=== PATIENT | female | born 1940 | race Caucasian/White ===

== ENCOUNTER 2016-11-02 19:31 | Emergency (ER) | payer MEDICARE ==
[~2016-11-02] VITALS: Ht 162.6 cm; Wt 109.0 kg
[~2016-11-02 19:31] MED LIST: ASPI-1073 PO; ATEN50TA PO; ATOR20TA65 PO; CLOP75TA2 PO; FURO40TA5 PO; IRON45TA10 PO; KCL 20 MEQ PO; LEVVL SQ
[2016-11-02 21:43] VITALS: BP 150/45
== END 2016-11-02 21:47 | disposition home or self-care (01) ==
LOC: ER 20:35
DX: S91.051A Open bite, right ankle, initial encounter (principal); E11.9 Type 2 diabetes mellitus without complications; I50.9 Heart failure, unspecified; Z79.82 Long term (current) use of aspirin; Z88.6 Allergy status to analgesic agent; Z79.4 Long term (current) use of insulin; Z95.1 Presence of aortocoronary bypass graft; W55.01XA Bitten by cat, initial encounter; Y93.89 Activity, other specified; Y92.018 Other place in single-family (private) house as the place of occurrence of the external cause
CPT/HCPCS: 99283

== ENCOUNTER 2017-11-11 17:50 | Inpatient (IN) | payer MEDICARE ==
[~2017-11-11] VITALS: Ht 160 cm; Wt 129.5 kg
[~2017-11-11 17:50] MED LIST changes: +CLOP75TA16 PO; -CLOP75TA2 PO
[2017-11-11 18:00] VITALS: BP 194/64
[2017-11-11] MEDS ORDERED: BISACODYL 10MG SUPP PR PRN (19:30)
[2017-11-11] MEDS ORDERED: GUAIFENESIN-DM 200MG-20MG/10ML UDC PO PRN (19:30)
[2017-11-11] MEDS ORDERED: CLONIDINE 0.1MG TABLET PO PRN (19:30)
[2017-11-11] MEDS ORDERED: ONDANSETRON HCL 4MG/2ML VIAL IV PRN (19:30)
[2017-11-11] MEDS ORDERED: ACETAMINOPHEN 650MG SUPP PR PRN (19:30)
[2017-11-11] MEDS ORDERED: IPRATROPIUM/ALBUTEROL 0.5-3(2.5)MG/3ML NEB HHN PRN (19:30)
[2017-11-11] MEDS ORDERED: ACETAMINOPHEN 325MG TABLET PO PRN (19:30)
[2017-11-11] MEDS ORDERED: NYSTATIN POWDER 15GM TOP SCH ×2 (19:30→22:00)
[2017-11-11] MEDS ORDERED: DEXTROSE 50% WATER 50ML SYRINGE IV PRN (19:45)
[2017-11-11 20:00] VITALS: BP 147/40
[2017-11-11] MEDS: BLOOD SUGAR DIAGNOSTIC STRIP TEST SCH (21:00)
[2017-11-11] MEDS ORDERED: PANTOPRAZOLE 40MG DR TABLET PO SCH (21:00)
[2017-11-11] MEDS: IPRATROPIUM/ALBUTEROL 0.5-3(2.5)MG/3ML NEB HHN SCH (21:19)
[2017-11-11] MEDS: SUCRALFATE 1 G/10 ML UDC PO SCH (22:05)
[2017-11-11] MEDS: ATORVASTATIN CALCIUM 20MG TABLET PO SCH (22:06)
[2017-11-11] MEDS: METOPROLOL TARTRATE 25MG TABLET PO SCH (22:06)
[2017-11-11] MEDS: AMLODIPINE 2.5MG TABLET PO SCH (22:07)
[2017-11-11] MEDS: INSULIN LISPRO 100 UNITS/ML SUBCUT SCH (22:39)
[2017-11-12] VITALS: BP 135/59
[2017-11-12] MEDS: IPRATROPIUM/ALBUTEROL 0.5-3(2.5)MG/3ML NEB HHN SCH ×6 (00:33→20:56)
[2017-11-12] MEDS ORDERED: PANTOPRAZOLE 40MG DR TABLET PO SCH (01:15)
[2017-11-12] MEDS: SUCRALFATE 1 G/10 ML UDC PO SCH ×4 (05:43→21:56)
[2017-11-12] MEDS: BLOOD SUGAR DIAGNOSTIC STRIP TEST SCH ×4 (05:43→21:57)
[2017-11-12] MEDS: PANTOPRAZOLE 40MG DR TABLET PO SCH ×2 (06:14→17:33)
[2017-11-12 08:00] VITALS: BP 135/59
[2017-11-12 08:37] LABS: BASOPHILS % 0.6 % (0.0-2.0); HEMATOCRIT. 27.8 % (36.0-48.0); HEMOGLOBIN. 9.3 g/dL (12.0-16.0); LYMPHOCYTES % 8.1 % (20.0-50.0); MEAN CORPUSCULAR HEMOGLOBIN 30.5 pg (28.0-32.0); MEAN CORPUSCULAR VOLUME 91.2 fL (81.0-99.0); MEAN PLATELET VOLUME 9.1 fl (7.4-10.4); NEUTROPHILS % 73.3 % (40.0-76.0); PLATELET 143 x1000/uL (130-400); RED BLOOD CELL COUNT 3.05 mill/uL (4.2-5.4); RED CELL DISTRIBUTION WIDTH 18.5 % (11.6-14.6)
[2017-11-12] MEDS: INSULIN LISPRO 100 UNITS/ML SUBCUT SCH ×4 (09:00→21:00)
[2017-11-12] MEDS: FLUCONAZOLE 200MG TABLET PO SCH (09:48)
[2017-11-12] MEDS: ASPIRIN 81MG EC TABLET PO SCH (09:49)
[2017-11-12] MEDS: DOCUSATE SODIUM 250MG CAPSULE PO SCH (09:49)
[2017-11-12] MEDS: AMLODIPINE 2.5MG TABLET PO SCH ×2 (09:49→22:59)
[2017-11-12] MEDS: NYSTATIN POWDER 15GM TOP SCH ×2 (09:50→22:04)
[2017-11-12] MEDS: METOPROLOL TARTRATE 25MG TABLET PO SCH ×2 (09:50→21:57)
[2017-11-12] MEDS: LEVOFLOXACIN 500MG TABLET PO SCH (10:16)
[2017-11-12 10:44] LABS: PHOSPHORUS 2.7 mg/dL (2.5-4.9)
[2017-11-12] MEDS ORDERED: FUROSEMIDE 40MG/4ML VIAL IVP NR (11:30)
[2017-11-12 20:00] VITALS: BP 150/75
[2017-11-12] MEDS: ATORVASTATIN CALCIUM 20MG TABLET PO SCH (21:57)
[2017-11-13] MEDS: IPRATROPIUM/ALBUTEROL 0.5-3(2.5)MG/3ML NEB HHN SCH ×2 (00:45→04:45)
[2017-11-13] MEDS: SUCRALFATE 1 G/10 ML UDC PO SCH ×4 (05:58→22:44)
[2017-11-13] MEDS: BLOOD SUGAR DIAGNOSTIC STRIP TEST SCH ×4 (05:58→21:00)
[2017-11-13] MEDS: PANTOPRAZOLE 40MG DR TABLET PO SCH ×2 (05:59→16:55)
[2017-11-13] MEDS: INSULIN LISPRO 100 UNITS/ML SUBCUT SCH ×4 (06:36→21:00)
[2017-11-13 06:53] LABS: CLARITY URINE CLEAR (CLEAR); COLOR URINE YELLOW (YELLOW); KETONES URINE NEGATIVE (NEGATIVE); LEUKOCYTE ESTERASE URINE NEGATIVE (NEGATIVE); NITRITE URINE NEGATIVE (NEGATIVE); OCCULT BLOOD URINE TRACE (NEGATIVE); PROTEIN URINE 2+ (NEGATIVE); SPECIFIC GRAVITY URINE 1.012 (1.005-1.030); UROBILINOGEN URINE 0.2 E.U./dL (0.2-1.0)
[2017-11-13 07:33] VITALS: BP 165/90
[2017-11-13 07:34] LABS: BASOPHILS % 0.7 % (0.0-2.0); EOSINOPHILS % 7.9 % (0.0-5.0); HEMATOCRIT. 29.8 % (36.0-48.0); HEMOGLOBIN. 9.7 g/dL (12.0-16.0); LYMPHOCYTES % 8.8 % (20.0-50.0); MEAN CORPUSCULAR HEMOGLOBIN 29.8 pg (28.0-32.0); MEAN CORPUSCULAR VOLUME 91.6 fL (81.0-99.0); MONOCYTES % 8.1 % (2.0-8.0); NEUTROPHILS % 74.5 % (40.0-76.0); PLATELET 157 x1000/uL (130-400); RED BLOOD CELL COUNT 3.26 mill/uL (4.2-5.4); RED CELL DISTRIBUTION WIDTH 18.8 % (11.6-14.6)
[2017-11-13] MEDS: DOCUSATE SODIUM 250MG CAPSULE PO SCH (08:13)
[2017-11-13] MEDS: FLUCONAZOLE 200MG TABLET PO SCH (08:13)
[2017-11-13] MEDS: AMLODIPINE 2.5MG TABLET PO SCH ×2 (08:14→23:05)
[2017-11-13] MEDS: ASPIRIN 81MG EC TABLET PO SCH (08:14)
[2017-11-13] MEDS: METOPROLOL TARTRATE 25MG TABLET PO SCH ×2 (08:14→22:44)
[2017-11-13] MEDS: NYSTATIN POWDER 15GM TOP SCH ×2 (08:17→22:45)
[2017-11-13] MEDS ORDERED: CLONIDINE 0.1MG TABLET PO PRN (09:30)
[2017-11-13 11:13] LABS: PHOSPHORUS 2.9 mg/dL (2.5-4.9)
[2017-11-13] MEDS: LEVOFLOXACIN 500MG TABLET PO SCH (11:52)
[2017-11-13] MEDS: BISACODYL 5MG TABLET PO PRN (11:54)
[2017-11-13] MEDS ORDERED: FUROSEMIDE 40MG/4ML VIAL IVP NR (16:30)
[2017-11-13] MEDS: LACTULOSE 20G/30ML UDC PO PRN (16:55)
[2017-11-13] MEDS: DOCUSATE SODIUM 100MG CAPSULE PO SCH ×2 (16:55→20:00)
[2017-11-13 20:00] VITALS: BP 174/104
[2017-11-13] MEDS: ATORVASTATIN CALCIUM 20MG TABLET PO SCH (22:44)
[2017-11-14] MEDS: BLOOD SUGAR DIAGNOSTIC STRIP TEST SCH ×4 (06:54→21:00)
[2017-11-14] MEDS: INSULIN LISPRO 100 UNITS/ML SUBCUT SCH ×4 (06:54→22:32)
[2017-11-14] MEDS: PANTOPRAZOLE 40MG DR TABLET PO SCH ×2 (06:57→18:28)
[2017-11-14] MEDS: SUCRALFATE 1 G/10 ML UDC PO SCH ×4 (06:57→22:27)
[2017-11-14 07:09] LABS: BASOPHILS % 0.8 % (0.0-2.0); EOSINOPHILS % 11.4 % (0.0-5.0); HEMATOCRIT. 27.2 % (36.0-48.0); HEMOGLOBIN. 9.1 g/dL (12.0-16.0); LYMPHOCYTES % 9.2 % (20.0-50.0); MEAN CORPUSCULAR HEMOGLOBIN 30.4 pg (28.0-32.0); MEAN CORPUSCULAR VOLUME 91.1 fL (81.0-99.0); MEAN PLATELET VOLUME 8.8 fl (7.4-10.4); MONOCYTES % 7.6 % (2.0-8.0); PLATELET 129 x1000/uL (130-400); RED BLOOD CELL COUNT 2.99 mill/uL (4.2-5.4); RED CELL DISTRIBUTION WIDTH 18.9 % (11.6-14.6)
[2017-11-14 08:00] VITALS: BP 157/44
[2017-11-14 08:03] LABS: PHOSPHORUS 3.7 mg/dL (2.5-4.9)
[2017-11-14] MEDS ORDERED: FUROSEMIDE 40MG/4ML VIAL IVP SCH (10:00)
[2017-11-14] MEDS: ASPIRIN 81MG EC TABLET PO SCH (10:21)
[2017-11-14] MEDS: DOCUSATE SODIUM 100MG CAPSULE PO SCH ×2 (10:21→18:28)
[2017-11-14] MEDS: FLUCONAZOLE 200MG TABLET PO SCH (10:21)
[2017-11-14] MEDS: LEVOFLOXACIN 500MG TABLET PO SCH (10:22)
[2017-11-14] MEDS: AMLODIPINE 2.5MG TABLET PO SCH ×2 (10:22→21:00)
[2017-11-14] MEDS: METOPROLOL TARTRATE 25MG TABLET PO SCH ×2 (10:23→21:00)
[2017-11-14] MEDS: NYSTATIN POWDER 15GM TOP SCH ×2 (10:38→22:27)
[2017-11-14 20:00] VITALS: BP 133/55
[2017-11-14] MEDS: ATORVASTATIN CALCIUM 20MG TABLET PO SCH (22:27)
[2017-11-14] MEDS: FUROSEMIDE 40MG/4ML VIAL IVP SCH (22:27)
[2017-11-15] MEDS: SUCRALFATE 1 G/10 ML UDC PO SCH ×4 (06:03→21:21)
[2017-11-15] MEDS: BLOOD SUGAR DIAGNOSTIC STRIP TEST SCH ×4 (06:03→21:05)
[2017-11-15] MEDS: INSULIN LISPRO 100 UNITS/ML SUBCUT SCH ×4 (06:03→21:21)
[2017-11-15] MEDS: PANTOPRAZOLE 40MG DR TABLET PO SCH ×2 (06:03→17:21)
[2017-11-15 06:49] LABS: BASOPHILS % 0.5 % (0.0-2.0); EOSINOPHILS % 9.6 % (0.0-5.0); HEMATOCRIT. 25.5 % (36.0-48.0); HEMOGLOBIN. 8.8 g/dL (12.0-16.0); LYMPHOCYTES % 10.9 % (20.0-50.0); MEAN CORPUSCULAR HEMOGLOBIN 31.5 pg (28.0-32.0); MEAN CORPUSCULAR VOLUME 91.5 fL (81.0-99.0); MONOCYTES % 7.8 % (2.0-8.0); NEUTROPHILS % 71.2 % (40.0-76.0); PLATELET 141 x1000/uL (130-400); RED BLOOD CELL COUNT 2.78 mill/uL (4.2-5.4); RED CELL DISTRIBUTION WIDTH 19.6 % (11.6-14.6)
[2017-11-15 08:00] VITALS: BP 156/53
[2017-11-15] MEDS: ASPIRIN 81MG EC TABLET PO SCH (09:16)
[2017-11-15] MEDS: AMLODIPINE 2.5MG TABLET PO SCH ×2 (09:17→21:22)
[2017-11-15] MEDS: METOPROLOL TARTRATE 25MG TABLET PO SCH ×2 (09:18→21:22)
[2017-11-15] MEDS: DOCUSATE SODIUM 100MG CAPSULE PO SCH ×2 (09:18→17:21)
[2017-11-15] MEDS: FUROSEMIDE 40MG/4ML VIAL IVP SCH ×2 (09:18→21:22)
[2017-11-15] MEDS: NYSTATIN POWDER 15GM TOP SCH ×2 (09:19→21:24)
[2017-11-15 13:57] LABS: PHOSPHORUS 3.3 mg/dL (2.5-4.9)
[2017-11-15 20:00] VITALS: BP 154/42
[2017-11-15] MEDS: ATORVASTATIN CALCIUM 20MG TABLET PO SCH (21:22)
[2017-11-15] MEDS: LACTULOSE 20G/30ML UDC PO PRN (21:23)
[2017-11-16] MEDS: SUCRALFATE 1 G/10 ML UDC PO SCH ×4 (06:11→21:49)
[2017-11-16] MEDS: PANTOPRAZOLE 40MG DR TABLET PO SCH ×2 (06:11→18:55)
[2017-11-16] MEDS: BLOOD SUGAR DIAGNOSTIC STRIP TEST SCH ×4 (06:12→21:37)
[2017-11-16] MEDS: INSULIN LISPRO 100 UNITS/ML SUBCUT SCH ×4 (06:33→21:52)
[2017-11-16 08:00] VITALS: BP 172/56
[2017-11-16] MEDS: DOCUSATE SODIUM 100MG CAPSULE PO SCH ×2 (09:35→18:55)
[2017-11-16] MEDS: FUROSEMIDE 40MG/4ML VIAL IVP SCH ×2 (09:35→21:35)
[2017-11-16] MEDS: ASPIRIN 81MG EC TABLET PO SCH (09:36)
[2017-11-16] MEDS: AMLODIPINE 2.5MG TABLET PO SCH ×3 (10:00→10:03)
[2017-11-16] MEDS: METOPROLOL TARTRATE 25MG TABLET PO SCH ×2 (10:30→21:00)
[2017-11-16] MEDS ORDERED: CLOPIDOGREL 75MG TABLET PO SCH (14:30)
[2017-11-16 20:00] VITALS: BP 195/57
[2017-11-16] MEDS: AMLODIPINE 5MG TABLET PO SCH (21:35)
[2017-11-16] MEDS: ATORVASTATIN CALCIUM 20MG TABLET PO SCH (21:35)
[2017-11-17] MEDS: SUCRALFATE 1 G/10 ML UDC PO SCH ×4 (06:13→21:46)
[2017-11-17] MEDS: PANTOPRAZOLE 40MG DR TABLET PO SCH ×2 (06:13→18:03)
[2017-11-17] MEDS: BLOOD SUGAR DIAGNOSTIC STRIP TEST SCH ×4 (06:18→21:47)
[2017-11-17] MEDS: BISACODYL 5MG TABLET PO PRN (06:23)
[2017-11-17 08:00] VITALS: BP 148/56
[2017-11-17 08:59] LABS: BASOPHILS % 0.9 % (0.0-2.0); EOSINOPHILS % 10.3 % (0.0-5.0); HEMOGLOBIN. 9.8 g/dL (12.0-16.0); LYMPHOCYTES % 10.4 % (20.0-50.0); MEAN CORPUSCULAR HEMOGLOBIN 30.7 pg (28.0-32.0); MEAN CORPUSCULAR VOLUME 90.8 fL (81.0-99.0); MEAN PLATELET VOLUME 8.4 fl (7.4-10.4); MONOCYTES % 8.6 % (2.0-8.0); NEUTROPHILS % 69.8 % (40.0-76.0); PLATELET 140 x1000/uL (130-400); RED CELL DISTRIBUTION WIDTH 19.4 % (11.6-14.6)
[2017-11-17] MEDS: FUROSEMIDE 40MG/4ML VIAL IVP SCH ×2 (08:59→21:46)
[2017-11-17] MEDS: INSULIN LISPRO 100 UNITS/ML SUBCUT SCH ×4 (09:00→21:58)
[2017-11-17] MEDS: AMLODIPINE 5MG TABLET PO SCH ×2 (09:00→21:47)
[2017-11-17] MEDS: METOPROLOL TARTRATE 25MG TABLET PO SCH ×2 (09:00→21:47)
[2017-11-17] MEDS: ASPIRIN 81MG EC TABLET PO SCH (09:01)
[2017-11-17] MEDS: CLOPIDOGREL 75MG TABLET PO SCH (09:01)
[2017-11-17] MEDS: DOCUSATE SODIUM 100MG CAPSULE PO SCH ×2 (09:01→18:03)
[2017-11-17 10:16] LABS: PHOSPHORUS 2.7 mg/dL (2.5-4.9)
[2017-11-17] MEDS ORDERED: POTASSIUM CHLORIDE 20MEQ TABLET SR PO NR (11:00)
[2017-11-17] MEDS ORDERED: CLONIDINE 0.1MG TABLET PO PRN (16:00)
[2017-11-17] MEDS ORDERED: CLONIDINE 0.2MG TABLET PO PRN (16:00)
[2017-11-17 20:00] VITALS: BP 110/71
[2017-11-17] MEDS: LACTULOSE 20G/30ML UDC PO PRN (21:46)
[2017-11-17] MEDS: ATORVASTATIN CALCIUM 20MG TABLET PO SCH (21:46)
[2017-11-18] MEDS: SUCRALFATE 1 G/10 ML UDC PO SCH ×4 (05:56→21:42)
[2017-11-18] MEDS: PANTOPRAZOLE 40MG DR TABLET PO SCH ×2 (05:56→16:20)
[2017-11-18] MEDS: BLOOD SUGAR DIAGNOSTIC STRIP TEST SCH ×4 (06:09→21:43)
[2017-11-18 08:00] VITALS: BP 188/78
[2017-11-18] MEDS: DOCUSATE SODIUM 100MG CAPSULE PO SCH ×2 (08:29→16:20)
[2017-11-18] MEDS: FUROSEMIDE 40MG/4ML VIAL IVP SCH ×2 (08:29→21:42)
[2017-11-18] MEDS: ASPIRIN 81MG EC TABLET PO SCH (08:29)
[2017-11-18] MEDS: CLOPIDOGREL 75MG TABLET PO SCH (08:29)
[2017-11-18] MEDS: AMLODIPINE 5MG TABLET PO SCH (08:29)
[2017-11-18] MEDS: METOPROLOL TARTRATE 25MG TABLET PO SCH ×2 (08:30→21:45)
[2017-11-18] MEDS: INSULIN LISPRO 100 UNITS/ML SUBCUT SCH ×4 (08:31→21:44)
[2017-11-18 20:00] VITALS: BP 186/54
[2017-11-18] MEDS ORDERED: LOSARTAN POTASSIUM 25 MG TABLET PO SCH (21:00)
[2017-11-18] MEDS: ATORVASTATIN CALCIUM 20MG TABLET PO SCH (21:42)
[2017-11-18] MEDS: NYSTATIN POWDER 15GM TOP SCH (21:45)
[2017-11-19] VITALS: BP 122/58
[2017-11-19] MEDS: SUCRALFATE 1 G/10 ML UDC PO SCH ×4 (06:31→22:10)
[2017-11-19] MEDS: PANTOPRAZOLE 40MG DR TABLET PO SCH ×2 (06:31→18:31)
[2017-11-19] MEDS: BLOOD SUGAR DIAGNOSTIC STRIP TEST SCH ×4 (06:31→21:00)
[2017-11-19 06:38] LABS: BASOPHILS % 0.9 % (0.0-2.0); EOSINOPHILS % 7.5 % (0.0-5.0); HEMATOCRIT. 26.7 % (36.0-48.0); HEMOGLOBIN. 8.9 g/dL (12.0-16.0); LYMPHOCYTES % 11.9 % (20.0-50.0); MEAN CORPUSCULAR HEMOGLOBIN 30.5 pg (28.0-32.0); MEAN CORPUSCULAR VOLUME 91.2 fL (81.0-99.0); MEAN PLATELET VOLUME 8.6 fl (7.4-10.4); MONOCYTES % 7.7 % (2.0-8.0); PLATELET 142 x1000/uL (130-400); RED BLOOD CELL COUNT 2.92 mill/uL (4.2-5.4); RED CELL DISTRIBUTION WIDTH 19.3 % (11.6-14.6)
[2017-11-19 08:00] VITALS: BP 140/74
[2017-11-19] MEDS: INSULIN LISPRO 100 UNITS/ML SUBCUT SCH ×4 (08:04→22:11)
[2017-11-19 08:27] LABS: PHOSPHORUS 3.2 mg/dL (2.5-4.9)
[2017-11-19] MEDS: NYSTATIN POWDER 15GM TOP SCH ×2 (09:31→22:11)
[2017-11-19] MEDS: FUROSEMIDE 40MG/4ML VIAL IVP SCH ×2 (09:31→22:10)
[2017-11-19] MEDS: DOCUSATE SODIUM 100MG CAPSULE PO SCH ×2 (09:32→18:31)
[2017-11-19] MEDS: LOSARTAN POTASSIUM 25 MG TABLET PO SCH ×2 (09:33→21:00)
[2017-11-19] MEDS: ASPIRIN 81MG EC TABLET PO SCH (09:34)
[2017-11-19] MEDS: CLOPIDOGREL 75MG TABLET PO SCH (09:34)
[2017-11-19] MEDS: NIFEDIPINE XL 60MG TAB PO SCH ×2 (09:35→21:00)
[2017-11-19] MEDS: METOPROLOL TARTRATE 25MG TABLET PO SCH ×2 (09:35→21:00)
[2017-11-19] MEDS: POTASSIUM CHLORIDE 20MEQ TABLET SR PO SCH (11:05)
[2017-11-19] MEDS: IPRATROPIUM/ALBUTEROL 0.5-3(2.5)MG/3ML NEB HHN PRN ×2 (12:15→19:15)
[2017-11-19 20:00] VITALS: BP 117/35
[2017-11-19] MEDS: ATORVASTATIN CALCIUM 20MG TABLET PO SCH (22:10)
[2017-11-20] MEDS: BLOOD SUGAR DIAGNOSTIC STRIP TEST SCH ×4 (06:41→21:00)
[2017-11-20] MEDS: PANTOPRAZOLE 40MG DR TABLET PO SCH ×2 (06:42→17:04)
[2017-11-20] MEDS: SUCRALFATE 1 G/10 ML UDC PO SCH ×4 (06:53→22:08)
[2017-11-20 07:07] LABS: HEMATOCRIT 25.6 % (36.0-48.0); HEMOGLOBIN 8.6 g/dL (12.0-16.0); MEAN CORPUSCULAR HEMOGLOBIN 30.7 pg (28.0-32.0); MEAN CORPUSCULAR VOLUME 91.5 fL (81.0-99.0); PLATELET 135 x1000/uL (130-400); RED BLOOD CELL COUNT 2.79 mill/uL (4.2-5.4); RED CELL DISTRIBUTION WIDTH 19.8 % (11.6-14.6)
[2017-11-20 08:15] VITALS: BP 129/45
[2017-11-20] MEDS: LOSARTAN POTASSIUM 25 MG TABLET PO SCH ×2 (09:00→22:08)
[2017-11-20] MEDS: INSULIN LISPRO 100 UNITS/ML SUBCUT SCH ×4 (09:00→22:06)
[2017-11-20] MEDS: DOCUSATE SODIUM 100MG CAPSULE PO SCH ×2 (09:58→17:04)
[2017-11-20] MEDS: ASPIRIN 81MG EC TABLET PO SCH (09:58)
[2017-11-20] MEDS: FUROSEMIDE 40MG/4ML VIAL IVP SCH ×2 (09:58→22:06)
[2017-11-20] MEDS: POTASSIUM CHLORIDE 20MEQ TABLET SR PO SCH (09:59)
[2017-11-20] MEDS: CLOPIDOGREL 75MG TABLET PO SCH (10:00)
[2017-11-20] MEDS: NIFEDIPINE XL 60MG TAB PO SCH (10:00)
[2017-11-20] MEDS: METOPROLOL TARTRATE 25MG TABLET PO SCH ×2 (10:00→22:07)
[2017-11-20] MEDS: NYSTATIN POWDER 15GM TOP SCH ×2 (10:02→22:21)
[2017-11-20] MEDS ORDERED: POTASSIUM CHLORIDE 20MEQ/PACKET PO NR (11:15)
[2017-11-20] MEDS: SPIRONOLACTONE 25MG TABLET PO SCH (11:54)
[2017-11-20 20:00] VITALS: BP 160/65
[2017-11-20] MEDS: ATORVASTATIN CALCIUM 20MG TABLET PO SCH (22:08)
[2017-11-21] MEDS: IPRATROPIUM/ALBUTEROL 0.5-3(2.5)MG/3ML NEB HHN PRN ×2 (01:38→23:14)
[2017-11-21] MEDS: PANTOPRAZOLE 40MG DR TABLET PO SCH ×2 (06:24→17:02)
[2017-11-21] MEDS: SUCRALFATE 1 G/10 ML UDC PO SCH ×4 (06:24→20:57)
[2017-11-21] MEDS: BLOOD SUGAR DIAGNOSTIC STRIP TEST SCH (06:25)
[2017-11-21] MEDS: INSULIN LISPRO 100 UNITS/ML SUBCUT SCH (06:59)
[2017-11-21 08:00] VITALS: BP 163/82
[2017-11-21] MEDS: POTASSIUM CHLORIDE 20MEQ TABLET SR PO SCH (09:11)
[2017-11-21] MEDS: FUROSEMIDE 40MG/4ML VIAL IVP SCH ×2 (09:11→20:57)
[2017-11-21] MEDS: ASPIRIN 81MG EC TABLET PO SCH (09:11)
[2017-11-21] MEDS: CLOPIDOGREL 75MG TABLET PO SCH (09:11)
[2017-11-21] MEDS: DOCUSATE SODIUM 100MG CAPSULE PO SCH ×2 (09:11→17:02)
[2017-11-21] MEDS: NIFEDIPINE XL 60MG TAB PO SCH (09:12)
[2017-11-21] MEDS: LOSARTAN POTASSIUM 25 MG TABLET PO SCH ×2 (09:12→20:56)
[2017-11-21] MEDS: NYSTATIN POWDER 15GM TOP SCH ×2 (09:13→21:01)
[2017-11-21] MEDS: METOPROLOL TARTRATE 25MG TABLET PO SCH ×2 (09:13→20:56)
[2017-11-21] MEDS: SPIRONOLACTONE 25MG TABLET PO SCH ×2 (09:13→17:05)
[2017-11-21 10:27] LABS: BASOPHILS % 0.6 % (0.0-2.0); HEMATOCRIT. 27.6 % (36.0-48.0); LYMPHOCYTES % 7.5 % (20.0-50.0); MEAN CORPUSCULAR HEMOGLOBIN 30.1 pg (28.0-32.0); MEAN CORPUSCULAR VOLUME 92.1 fL (81.0-99.0); MEAN PLATELET VOLUME 8.8 fl (7.4-10.4); MONOCYTES % 6.6 % (2.0-8.0); NEUTROPHILS % 80.3 % (40.0-76.0); PLATELET 142 x1000/uL (130-400); RED BLOOD CELL COUNT 2.99 mill/uL (4.2-5.4); RED CELL DISTRIBUTION WIDTH 20.1 % (11.6-14.6)
[2017-11-21 10:54] LABS: CHLORIDE 100 mEq/L (98-107)
[2017-11-21 11:09] LABS: PHOSPHORUS 2.1 mg/dL (2.5-4.9)
[2017-11-21] MEDS: POTASSIUM-SODIUM PHOSPHATE POWDER PACKET PO SCH ×2 (11:55→17:02)
[2017-11-21] MEDS: BISACODYL 5MG TABLET PO PRN (17:57)
[2017-11-21 20:00] VITALS: BP 173/86
[2017-11-21] MEDS: ATORVASTATIN CALCIUM 20MG TABLET PO SCH (20:56)
[2017-11-21 23:11] VITALS: BP 113/42
[2017-11-22] MEDS: SUCRALFATE 1 G/10 ML UDC PO SCH ×4 (06:00→21:38)
[2017-11-22] MEDS: PANTOPRAZOLE 40MG DR TABLET PO SCH ×2 (06:01→17:10)
[2017-11-22 07:05] LABS: HEMATOCRIT 26.5 % (36.0-48.0); HEMOGLOBIN 8.9 g/dL (12.0-16.0); MEAN CORPUSCULAR HEMOGLOBIN 31.2 pg (28.0-32.0); PLATELET 127 x1000/uL (130-400); RED BLOOD CELL COUNT 2.85 mill/uL (4.2-5.4); RED CELL DISTRIBUTION WIDTH 20.4 % (11.6-14.6)
[2017-11-22 08:00] VITALS: BP 164/86
[2017-11-22 08:06] LABS: PHOSPHORUS 3.1 mg/dL (2.5-4.9)
[2017-11-22] MEDS: DOCUSATE SODIUM 100MG CAPSULE PO SCH ×2 (08:25→17:00)
[2017-11-22] MEDS: ASPIRIN 81MG EC TABLET PO SCH (08:25)
[2017-11-22] MEDS: CLOPIDOGREL 75MG TABLET PO SCH (08:26)
[2017-11-22] MEDS: SPIRONOLACTONE 25MG TABLET PO SCH ×2 (08:26→17:10)
[2017-11-22] MEDS: LOSARTAN POTASSIUM 25 MG TABLET PO SCH (08:26)
[2017-11-22] MEDS: POTASSIUM-SODIUM PHOSPHATE POWDER PACKET PO SCH ×2 (08:26→17:09)
[2017-11-22] MEDS: FUROSEMIDE 40MG/4ML VIAL IVP SCH ×2 (08:26→21:37)
[2017-11-22] MEDS: METOPROLOL TARTRATE 25MG TABLET PO SCH ×2 (08:27→21:37)
[2017-11-22] MEDS: NIFEDIPINE XL 60MG TAB PO SCH ×2 (08:27→21:37)
[2017-11-22] MEDS: NYSTATIN POWDER 15GM TOP SCH (08:45)
[2017-11-22] MEDS: IPRATROPIUM/ALBUTEROL 0.5-3(2.5)MG/3ML NEB HHN PRN (14:53)
[2017-11-22 20:00] VITALS: BP 141/101
[2017-11-22] MEDS: LOSARTAN POTASSIUM 50 MG TABLET PO SCH (21:37)
[2017-11-22] MEDS: ATORVASTATIN CALCIUM 20MG TABLET PO SCH (21:37)
[2017-11-22 22:46] VITALS: BP 112/49
[2017-11-23] MEDS: PANTOPRAZOLE 40MG DR TABLET PO SCH (06:21)
[2017-11-23] MEDS: NYSTATIN POWDER 15GM TOP SCH ×2 (06:21→08:42)
[2017-11-23] MEDS: SUCRALFATE 1 G/10 ML UDC PO SCH ×2 (06:21→11:14)
[2017-11-23 07:23] LABS: BASOPHILS % 0.8 % (0.0-2.0); EOSINOPHILS % 6.2 % (0.0-5.0); HEMATOCRIT. 27.5 % (36.0-48.0); HEMOGLOBIN. 9.3 g/dL (12.0-16.0); LYMPHOCYTES % 12.5 % (20.0-50.0); MEAN CORPUSCULAR HEMOGLOBIN 31.1 pg (28.0-32.0); MEAN CORPUSCULAR VOLUME 92.4 fL (81.0-99.0); MONOCYTES % 6.8 % (2.0-8.0); NEUTROPHILS % 73.7 % (40.0-76.0); RED BLOOD CELL COUNT 2.97 mill/uL (4.2-5.4); RED CELL DISTRIBUTION WIDTH 20.9 % (11.6-14.6)
[2017-11-23 07:31] VITALS: BP 106/39
[2017-11-23 07:44] LABS: PHOSPHORUS 3.8 mg/dL (2.5-4.9)
[2017-11-23] MEDS: FUROSEMIDE 40MG/4ML VIAL IVP SCH (08:41)
[2017-11-23] MEDS: CLOPIDOGREL 75MG TABLET PO SCH (08:41)
[2017-11-23] MEDS: DOCUSATE SODIUM 100MG CAPSULE PO SCH (08:42)
[2017-11-23] MEDS: ASPIRIN 81MG EC TABLET PO SCH (08:42)
[2017-11-23 08:50] VITALS: BP 167/77
[2017-11-23] MEDS: SPIRONOLACTONE 25MG TABLET PO SCH (08:55)
[2017-11-23] MEDS: LOSARTAN POTASSIUM 50 MG TABLET PO SCH (08:55)
[2017-11-23] MEDS: NIFEDIPINE XL 60MG TAB PO SCH (08:56)
[2017-11-23] MEDS: METOPROLOL TARTRATE 25MG TABLET PO SCH (08:56)
[2017-11-23 12:06] LABS: PLATELET 143 x1000/uL (130-400)
[2017-11-23 14:00] VITALS: BP 101/48
[2017-11-23] MEDS ORDERED: HYDRALAZINE HCL 50MG TABLET PO SCH (14:00)
[2017-11-23 14:06] VITALS: BP 101/48
== END 2017-11-23 15:14 | disposition home health service (06) | DRG 91 ==
PROVIDERS: ADMIT Psychiatry & Neurology Neurology; ATTEND Internal Medicine
DX: G72.81 Critical illness myopathy (principal); I50.33 Acute on chronic diastolic (congestive) heart failure; K29.71 Gastritis, unspecified, with bleeding; I21.4 Non-ST elevation (NSTEMI) myocardial infarction; N17.0 Acute kidney failure with tubular necrosis; I13.0 Hypertensive heart and chronic kidney disease with heart failure and stage 1 through stage 4 chronic kidney disease, or unspecified chronic kidney disease; E87.2 Acidosis; F33.1 Major depressive disorder, recurrent, moderate; G62.81 Critical illness polyneuropathy; R57.9 Shock, unspecified; Z68.43 Body mass index [BMI] 50.0-59.9, adult; N18.9 Chronic kidney disease, unspecified; I25.10 Atherosclerotic heart disease of native coronary artery without angina pectoris; E66.9 Obesity, unspecified; I35.9 Nonrheumatic aortic valve disorder, unspecified; R26.9 Unspecified abnormalities of gait and mobility; J44.9 Chronic obstructive pulmonary disease, unspecified; D50.0 Iron deficiency anemia secondary to blood loss (chronic); D69.6 Thrombocytopenia, unspecified; E11.22 Type 2 diabetes mellitus with diabetic chronic kidney disease; E11.40 Type 2 diabetes mellitus with diabetic neuropathy, unspecified; E11.65 Type 2 diabetes mellitus with hyperglycemia; E66.01 Morbid (severe) obesity due to excess calories; E83.51 Hypocalcemia; E87.6 Hypokalemia; F09 Unspecified mental disorder due to known physiological condition; K21.9 Gastro-esophageal reflux disease without esophagitis; F41.9 Anxiety disorder, unspecified; M79.7 Fibromyalgia; Z95.2 Presence of prosthetic heart valve; I25.2 Old myocardial infarction; Z86.73 Personal history of transient ischemic attack (TIA), and cerebral infarction without residual deficits; Z95.1 Presence of aortocoronary bypass graft; Z95.0 Presence of cardiac pacemaker; Z85.3 Personal history of malignant neoplasm of breast; Z87.891 Personal history of nicotine dependence; Z88.0 Allergy status to penicillin; Z88.6 Allergy status to analgesic agent; Z79.899 Other long term (current) drug therapy; Z90.13 Acquired absence of bilateral breasts and nipples
CPT/HCPCS: 36415; 71045; 80048; 80053; 81003; 82962; 83735; 84100; 85025; 85027; 93970; 94618; 94640; 97110; 97112; 97116; 97140; 97150; 97162; 97167; 97530; 97535; A6261; J1815; J1940; J7620

== ENCOUNTER 2017-11-29 15:52 | Inpatient (IN) | payer MEDICARE ==
[~2017-11-29] VITALS: Ht 162.6 cm; Wt 104.8 kg
[~2017-11-29 15:52] MED LIST changes: -ASPI-1073 PO; -ATEN50TA PO; -CLOP75TA16 PO; -IRON45TA10 PO; -KCL 20 MEQ PO; -LEVVL SQ; +LIDOCAINE HCL/PF 1% 2ML VIAL ONE
[2017-11-29 18:17] LABS: BG BASE EXCESS 3.8 mmol/L (-2.0-2.0); BG CARBOXYHEMOGLOBIN 0.5 % (0.5-1.5); BG DEOXYHEMOGLOBIN 13.3 % (0.0-5.0); BG FRACTION INSPIRED OXYGEN 28; BG HCO3 ACT 27.8 mmol/L (22.0-26.0); BG METHEMOGLOBIN 0.1 % (0.0-1.5); BG OXYGEN SATURATION 86.6 % (92.0-98.5); BG OXYHEMOGLOBIN 86.1 % (94.0-97.0); BG PCO2 39.7 mmHg (35.0-45.0); BG PH 7.463 (7.350-7.450); BG SAMPLE SITE LEFT RADIAL; BG TOTAL HEMOGLOBIN 9.3 g/dL (12.0-18.0); BG VENT MODE NASAL CANNULA
[2017-11-29] MEDS ORDERED: FUROSEMIDE 40MG/4ML VIAL IVP ONE (19:00)
[2017-11-29 19:13] LABS: BASOPHILS % 0.5 % (0.0-2.0); EOSINOPHILS % 3.4 % (0.0-5.0); HEMATOCRIT. 24.4 % (36.0-48.0); HEMOGLOBIN. 8.2 g/dL (12.0-16.0); MEAN CORPUSCULAR HEMOGLOBIN 31.5 pg (28.0-32.0); MEAN CORPUSCULAR VOLUME 93.9 fL (81.0-99.0); MEAN PLATELET VOLUME 8.5 fl (7.4-10.4); MONOCYTES % 8.1 % (2.0-8.0); PLATELET 169 x1000/uL (130-400); RED CELL DISTRIBUTION WIDTH 21.6 % (11.6-14.6)
[2017-11-29 19:14] LABS: CHLORIDE 105 mEq/L (98-107)
[2017-11-29 19:16] LABS: INR 1.1; PROTHROMBIN TIME 10.9 sec (9.4-11.6)
[2017-11-29 22:10] VITALS: BP 101/49
[2017-11-29] MEDS ORDERED: ONDANSETRON 4MG ODT PO PRN (22:45)
[2017-11-29] MEDS ORDERED: ACETAMINOPHEN 325MG TABLET PO PRN (22:45)
[2017-11-29] MEDS ORDERED: HYDROCODONE/ACETAMINOPHEN 5/325MG TABLET PO PRN (22:45)
[2017-11-29] MEDS ORDERED: ATORVASTATIN CALCIUM 20MG TABLET PO SCH (23:00)
[2017-11-29] MEDS: METHYLPREDNISOLONE SOD SUCC 40 MG/ML VIAL IV SCH (23:24)
[2017-11-29] MEDS: SUCRALFATE 1 G/10 ML UDC PO SCH (23:25)
[2017-11-30] VITALS (12 sets, daily range): BP systolic 100–133; BP diastolic 36–80
[2017-11-30] MEDS ORDERED: DEXTROSE 50% WATER 50ML SYRINGE IV PRN (00:15)
[2017-11-30] MEDS: IPRATROPIUM/ALBUTEROL 0.5-3(2.5)MG/3ML NEB INH SCH ×4 (02:10→21:00)
[2017-11-30] MEDS ORDERED: FUROSEMIDE 40MG/4ML VIAL IV SCH (06:00)
[2017-11-30] MEDS: METHYLPREDNISOLONE SOD SUCC 40 MG/ML VIAL IV SCH ×2 (06:17→18:02)
[2017-11-30] MEDS: SUCRALFATE 1 G/10 ML UDC PO SCH ×4 (06:17→21:23)
[2017-11-30] MEDS: PANTOPRAZOLE 40MG DR TABLET PO SCH (06:18)
[2017-11-30] MEDS: BLOOD SUGAR DIAGNOSTIC STRIP TEST SCH ×4 (06:18→21:17)
[2017-11-30 07:01] LABS: HEMATOCRIT. 24.3 % (36.0-48.0); HEMOGLOBIN. 8.1 g/dL (12.0-16.0); MEAN CORPUSCULAR HEMOGLOBIN 31.4 pg (28.0-32.0); MEAN CORPUSCULAR VOLUME 94.2 fL (81.0-99.0); MEAN PLATELET VOLUME 8.7 fl (7.4-10.4); PLATELET 151 x1000/uL (130-400); RED BLOOD CELL COUNT 2.58 mill/uL (4.2-5.4); RED CELL DISTRIBUTION WIDTH 21.7 % (11.6-14.6)
[2017-11-30 07:04] LABS: CHLORIDE 105 mEq/L (98-107)
[2017-11-30 07:16] LABS: CREATINE KINASE MB FRACTION < 0.5 ng/mL (0.5-3.6)
[2017-11-30 07:17] LABS: T4 FREE 0.75 ng/dL (0.76-1.46)
[2017-11-30 07:52] LABS: LDL CHOLESTEROL 100 mg/dL (5-100)
[2017-11-30 07:53] LABS: CREATINE KINASE 30 IU/L (26-192)
[2017-11-30 07:54] LABS: HDL CHOLESTEROL 43 mg/dL (40-59)
[2017-11-30] MEDS: INSULIN LISPRO 100 UNITS/ML SUBCUT SCH ×4 (08:53→21:24)
[2017-11-30] MEDS: LOSARTAN POTASSIUM 50 MG TABLET PO SCH (08:54)
[2017-11-30] MEDS: NIFEDIPINE XL 60MG TAB PO SCH (08:56)
[2017-11-30] MEDS ORDERED: CLOPIDOGREL 75MG TABLET PO SCH (09:00)
[2017-11-30] MEDS ORDERED: ENOXAPARIN 30MG/0.3ML SYR SUBCUT SCH (09:00)
[2017-11-30] MEDS ORDERED: ASPIRIN 81MG EC TABLET PO SCH (09:00)
[2017-11-30] MEDS ORDERED: POTASSIUM CHLORIDE 20MEQ TABLET SR PO SCH (13:00)
[2017-11-30 13:55] LABS: PLATELET ESTIMATE NORMAL
[2017-11-30] MEDS: CARVEDILOL 6.25 MG TABLET PO SCH ×2 (14:54→21:23)
[2017-11-30 15:17] LABS: BG BASE EXCESS 0.7 mmol/L (-2.0-2.0); BG CARBOXYHEMOGLOBIN 0.3 % (0.5-1.5); BG DEOXYHEMOGLOBIN 9.8 % (0.0-5.0); BG HCO3 ACT 24.4 mmol/L (22.0-26.0); BG METHEMOGLOBIN 0.2 % (0.0-1.5); BG OXYGEN SATURATION 90.2 % (92.0-98.5); BG OXYHEMOGLOBIN 89.7 % (94.0-97.0); BG PCO2 35.4 mmHg (35.0-45.0); BG PH 7.457 (7.350-7.450); BG SAMPLE SITE RIGHT BRACHIAL; BG VENT MODE ROOM AIR
[2017-11-30 16:31] LABS: CREATINE KINASE 28 IU/L (26-192)
[2017-11-30 16:32] LABS: CREATINE KINASE MB FRACTION 0.8 ng/mL (0.5-3.6)
[2017-11-30] MEDS: FUROSEMIDE 100MG/10ML VIAL IV SCH (18:02)
[2017-11-30] MEDS: METOLAZONE 2.5MG TABLET PO SCH (18:02)
[2017-11-30] MEDS: ATORVASTATIN CALCIUM 20MG TABLET PO SCH (21:22)
[2017-12-01] VITALS (13 sets, daily range): BP systolic 96–127; BP diastolic 47–59
[2017-12-01] MEDS: IPRATROPIUM/ALBUTEROL 0.5-3(2.5)MG/3ML NEB INH SCH ×4 (01:04→21:02)
[2017-12-01] MEDS: METOLAZONE 2.5MG TABLET PO SCH (05:31)
[2017-12-01] MEDS: METHYLPREDNISOLONE SOD SUCC 40 MG/ML VIAL IV SCH ×2 (06:08→16:58)
[2017-12-01] MEDS: LEVOTHYROXINE SODIUM 25MCG TABLET PO SCH (06:08)
[2017-12-01] MEDS: PANTOPRAZOLE 40MG DR TABLET PO SCH (06:08)
[2017-12-01] MEDS: SUCRALFATE 1 G/10 ML UDC PO SCH ×4 (06:08→20:56)
[2017-12-01] MEDS: FUROSEMIDE 100MG/10ML VIAL IV SCH ×2 (06:09→16:58)
[2017-12-01 06:40] LABS: HEMATOCRIT. 21.4 % (36.0-48.0); HEMOGLOBIN. 7.4 g/dL (12.0-16.0); MEAN CORPUSCULAR HEMOGLOBIN 32.6 pg (28.0-32.0); MEAN CORPUSCULAR VOLUME 93.9 fL (81.0-99.0); PLATELET 136 x1000/uL (130-400); RED BLOOD CELL COUNT 2.28 mill/uL (4.2-5.4); RED CELL DISTRIBUTION WIDTH 21.4 % (11.6-14.6)
[2017-12-01] MEDS: BLOOD SUGAR DIAGNOSTIC STRIP TEST SCH ×4 (06:51→21:10)
[2017-12-01] MEDS: LOSARTAN POTASSIUM 50 MG TABLET PO SCH (08:46)
[2017-12-01] MEDS: CARVEDILOL 6.25 MG TABLET PO SCH ×2 (08:46→20:56)
[2017-12-01] MEDS: NIFEDIPINE XL 60MG TAB PO SCH (08:46)
[2017-12-01] MEDS: INSULIN LISPRO 100 UNITS/ML SUBCUT SCH ×4 (08:49→21:09)
[2017-12-01] MEDS ORDERED: ENOXAPARIN 30MG/0.3ML SYR SUBCUT SCH (09:00)
[2017-12-01 09:33] LABS: BG BASE EXCESS 0.4 mmol/L (-2.0-2.0); BG CARBOXYHEMOGLOBIN 0.8 % (0.5-1.5); BG FRACTION INSPIRED OXYGEN 28; BG HCO3 ACT 24.8 mmol/L (22.0-26.0); BG METHEMOGLOBIN 0.2 % (0.0-1.5); BG OXYGEN SATURATION 93.9 % (92.0-98.5); BG PCO2 39.1 mmHg (35.0-45.0); BG PH 7.421 (7.350-7.450); BG PO2 71.6 mmHg (75.0-100.0); BG SAMPLE SITE RIGHT BRACHIAL; BG TOTAL HEMOGLOBIN 8.5 g/dL (12.0-18.0); BG VENT MODE NASAL CANNULA
[2017-12-01 10:18] LABS: PLATELET ESTIMATE NORMAL
[2017-12-01] MEDS ORDERED: FUROSEMIDE 40MG/4ML VIAL IVP NR (11:00)
[2017-12-01] MEDS: ENOXAPARIN 40MG/0.4ML SYR SUBCUT SCH (11:26)
[2017-12-01] MEDS ORDERED: LIDOCAINE HCL/PF 1% 2ML VIAL ONE (15:18)
[2017-12-01] MEDS: ATORVASTATIN CALCIUM 20MG TABLET PO SCH (21:54)
[2017-12-02] VITALS (19 sets, daily range): BP systolic 107–130; BP diastolic 39–57
[2017-12-02] MEDS: IPRATROPIUM/ALBUTEROL 0.5-3(2.5)MG/3ML NEB INH SCH ×4 (01:04→20:06)
[2017-12-02] MEDS: METHYLPREDNISOLONE SOD SUCC 40 MG/ML VIAL IV SCH (05:52)
[2017-12-02] MEDS: FUROSEMIDE 100MG/10ML VIAL IV SCH ×2 (05:52→18:12)
[2017-12-02] MEDS: LEVOTHYROXINE SODIUM 25MCG TABLET PO SCH (05:52)
[2017-12-02] MEDS: SUCRALFATE 1 G/10 ML UDC PO SCH ×4 (05:52→22:09)
[2017-12-02] MEDS: PANTOPRAZOLE 40MG DR TABLET PO SCH (05:53)
[2017-12-02] MEDS: BLOOD SUGAR DIAGNOSTIC STRIP TEST SCH ×4 (06:02→22:11)
[2017-12-02] MEDS: INSULIN LISPRO 100 UNITS/ML SUBCUT SCH ×4 (06:02→22:16)
[2017-12-02 07:03] LABS: HEMATOCRIT. 24.9 % (36.0-48.0); HEMOGLOBIN. 8.5 g/dL (12.0-16.0); MEAN CORPUSCULAR HEMOGLOBIN 31.7 pg (28.0-32.0); MEAN CORPUSCULAR VOLUME 92.6 fL (81.0-99.0); MEAN PLATELET VOLUME 8.7 fl (7.4-10.4); PLATELET 146 x1000/uL (130-400); RED BLOOD CELL COUNT 2.69 mill/uL (4.2-5.4); RED CELL DISTRIBUTION WIDTH 21.1 % (11.6-14.6)
[2017-12-02 07:39] LABS: PHOSPHORUS 3.9 mg/dL (2.5-4.9)
[2017-12-02 08:08] LABS: PLATELET ESTIMATE NORMAL
[2017-12-02] MEDS: LOSARTAN POTASSIUM 50 MG TABLET PO SCH (08:51)
[2017-12-02] MEDS: CARVEDILOL 6.25 MG TABLET PO SCH ×2 (08:52→22:10)
[2017-12-02] MEDS: NIFEDIPINE XL 60MG TAB PO SCH (11:42)
[2017-12-02] MEDS: ENOXAPARIN 40MG/0.4ML SYR SUBCUT SCH (11:42)
[2017-12-02] MEDS: ATORVASTATIN CALCIUM 20MG TABLET PO SCH (22:09)
[2017-12-03] VITALS (20 sets, daily range): BP systolic 92–131; BP diastolic 38–77
[2017-12-03] MEDS: IPRATROPIUM/ALBUTEROL 0.5-3(2.5)MG/3ML NEB INH SCH ×4 (01:58→19:37)
[2017-12-03 05:47] LABS: HEMATOCRIT 26.5 % (36.0-48.0); HEMOGLOBIN 9.1 g/dL (12.0-16.0); MEAN CORPUSCULAR HEMOGLOBIN 31.9 pg (28.0-32.0); MEAN CORPUSCULAR VOLUME 93.1 fL (81.0-99.0); PLATELET 149 x1000/uL (130-400); RED BLOOD CELL COUNT 2.84 mill/uL (4.2-5.4); RED CELL DISTRIBUTION WIDTH 20.7 % (11.6-14.6)
[2017-12-03 06:03] LABS: PHOSPHORUS 3.5 mg/dL (2.5-4.9)
[2017-12-03] MEDS: FUROSEMIDE 100MG/10ML VIAL IV SCH ×2 (06:45→17:20)
[2017-12-03] MEDS: SUCRALFATE 1 G/10 ML UDC PO SCH ×4 (06:45→22:26)
[2017-12-03] MEDS: LEVOTHYROXINE SODIUM 25MCG TABLET PO SCH (06:45)
[2017-12-03] MEDS: BLOOD SUGAR DIAGNOSTIC STRIP TEST SCH ×4 (06:47→21:00)
[2017-12-03] MEDS: INSULIN LISPRO 100 UNITS/ML SUBCUT SCH ×4 (06:47→22:38)
[2017-12-03] MEDS: NIFEDIPINE XL 60MG TAB PO SCH (09:00)
[2017-12-03] MEDS: LOSARTAN POTASSIUM 50 MG TABLET PO SCH (09:00)
[2017-12-03] MEDS: CARVEDILOL 6.25 MG TABLET PO SCH ×2 (09:00→22:25)
[2017-12-03] MEDS: METHYLPREDNISOLONE SOD SUCC 40 MG/ML VIAL IV SCH (09:34)
[2017-12-03] MEDS: ENOXAPARIN 40MG/0.4ML SYR SUBCUT SCH (09:35)
[2017-12-03] MEDS: FAMOTIDINE 20MG TABLET PO SCH (09:35)
[2017-12-03] MEDS: ASPIRIN 81MG EC TABLET PO SCH (09:44)
[2017-12-03 11:14] LABS: BG BASE EXCESS 6.4 mmol/L (-2.0-2.0); BG CARBOXYHEMOGLOBIN 0.4 % (0.5-1.5); BG DEOXYHEMOGLOBIN 4.2 % (0.0-5.0); BG FRACTION INSPIRED OXYGEN 28; BG HCO3 ACT 31.3 mmol/L (22.0-26.0); BG METHEMOGLOBIN 0.2 % (0.0-1.5); BG OXYGEN SATURATION 95.8 % (92.0-98.5); BG OXYHEMOGLOBIN 95.2 % (94.0-97.0); BG PCO2 46.8 mmHg (35.0-45.0); BG PH 7.443 (7.350-7.450); BG PO2 81.1 mmHg (75.0-100.0); BG SAMPLE SITE RIGHT RADIAL; BG TOTAL HEMOGLOBIN 10.6 g/dL (12.0-18.0); BG VENT MODE NASAL CANNULA
[2017-12-03 15:09] LABS: BG BASE EXCESS 4.7 mmol/L (-2.0-2.0); BG CARBOXYHEMOGLOBIN 0.1 % (0.5-1.5); BG DEOXYHEMOGLOBIN 6.9 % (0.0-5.0); BG FRACTION INSPIRED OXYGEN 21; BG HCO3 ACT 28.8 mmol/L (22.0-26.0); BG METHEMOGLOBIN 0.3 % (0.0-1.5); BG OXYGEN SATURATION 93.1 % (92.0-98.5); BG OXYHEMOGLOBIN 92.7 % (94.0-97.0); BG PCO2 41.2 mmHg (35.0-45.0); BG PH 7.463 (7.350-7.450); BG PO2 66.7 mmHg (75.0-100.0); BG SAMPLE SITE RIGHT BRACHIAL; BG TOTAL HEMOGLOBIN 10.5 g/dL (12.0-18.0); BG VENT MODE ROOM AIR
[2017-12-03] MEDS: ATORVASTATIN CALCIUM 40MG TABLET PO SCH (22:20)
[2017-12-04] VITALS (12 sets, daily range): BP systolic 104–139; BP diastolic 41–85
[2017-12-04] MEDS: IPRATROPIUM/ALBUTEROL 0.5-3(2.5)MG/3ML NEB INH SCH ×4 (02:03→20:57)
[2017-12-04] MEDS: SUCRALFATE 1 G/10 ML UDC PO SCH ×4 (05:40→22:17)
[2017-12-04] MEDS: FUROSEMIDE 100MG/10ML VIAL IV SCH ×2 (05:40→17:40)
[2017-12-04] MEDS: BLOOD SUGAR DIAGNOSTIC STRIP TEST SCH ×4 (06:39→21:00)
[2017-12-04] MEDS ORDERED: LEVOTHYROXINE SODIUM 50MCG TABLET PO SCH (06:50)
[2017-12-04 06:57] LABS: BASOPHILS % 0.1 % (0.0-2.0); EOSINOPHILS % 0.1 % (0.0-5.0); HEMATOCRIT. 26.8 % (36.0-48.0); HEMOGLOBIN. 9.1 g/dL (12.0-16.0); LYMPHOCYTES % 10.7 % (20.0-50.0); MEAN CORPUSCULAR HEMOGLOBIN 31.5 pg (28.0-32.0); MEAN CORPUSCULAR VOLUME 92.5 fL (81.0-99.0); MEAN PLATELET VOLUME 8.9 fl (7.4-10.4); MONOCYTES % 9.6 % (2.0-8.0); NEUTROPHILS % 79.5 % (40.0-76.0); PLATELET 145 x1000/uL (130-400); RED CELL DISTRIBUTION WIDTH 20.5 % (11.6-14.6)
[2017-12-04] MEDS: INSULIN LISPRO 100 UNITS/ML SUBCUT SCH ×4 (08:35→22:23)
[2017-12-04 08:39] LABS: PHOSPHORUS 3.7 mg/dL (2.5-4.9)
[2017-12-04] MEDS: NIFEDIPINE XL 60MG TAB PO SCH (09:06)
[2017-12-04] MEDS: FAMOTIDINE 20MG TABLET PO SCH (09:07)
[2017-12-04] MEDS: CARVEDILOL 6.25 MG TABLET PO SCH ×2 (09:07→22:18)
[2017-12-04] MEDS: METHYLPREDNISOLONE SOD SUCC 40 MG/ML VIAL IV SCH (09:07)
[2017-12-04] MEDS: ASPIRIN 81MG EC TABLET PO SCH (09:07)
[2017-12-04] MEDS: ENOXAPARIN 40MG/0.4ML SYR SUBCUT SCH (09:07)
[2017-12-04] MEDS: LOSARTAN POTASSIUM 50 MG TABLET PO SCH (09:10)
[2017-12-04] MEDS: ATORVASTATIN CALCIUM 40MG TABLET PO SCH (22:17)
[2017-12-05] VITALS: BP 121/53
[2017-12-05 02:00] VITALS: BP 119/47
[2017-12-05] MEDS: IPRATROPIUM/ALBUTEROL 0.5-3(2.5)MG/3ML NEB INH SCH ×3 (02:25→13:53)
[2017-12-05 04:00] VITALS: BP 128/47
[2017-12-05] MEDS: FUROSEMIDE 100MG/10ML VIAL IV SCH (05:25)
[2017-12-05] MEDS: SUCRALFATE 1 G/10 ML UDC PO SCH ×2 (05:26→13:13)
[2017-12-05 06:00] VITALS: BP 108/33
[2017-12-05 06:43] LABS: PHOSPHORUS 3.5 mg/dL (2.5-4.9)
[2017-12-05 06:54] LABS: EOSINOPHILS % 0.4 % (0.0-5.0); HEMATOCRIT. 27.6 % (36.0-48.0); HEMOGLOBIN. 9.4 g/dL (12.0-16.0); LYMPHOCYTES % 10.6 % (20.0-50.0); MEAN CORPUSCULAR HEMOGLOBIN 31.6 pg (28.0-32.0); MEAN CORPUSCULAR VOLUME 92.9 fL (81.0-99.0); MEAN PLATELET VOLUME 8.7 fl (7.4-10.4); MONOCYTES % 8.3 % (2.0-8.0); NEUTROPHILS % 80.7 % (40.0-76.0); PLATELET 146 x1000/uL (130-400); RED BLOOD CELL COUNT 2.97 mill/uL (4.2-5.4); RED CELL DISTRIBUTION WIDTH 20.4 % (11.6-14.6)
[2017-12-05] MEDS: BLOOD SUGAR DIAGNOSTIC STRIP TEST SCH ×2 (07:15→12:27)
[2017-12-05] MEDS: ASPIRIN 81MG EC TABLET PO SCH (08:57)
[2017-12-05] MEDS: METHYLPREDNISOLONE SOD SUCC 40 MG/ML VIAL IV SCH (08:57)
[2017-12-05] MEDS: INSULIN LISPRO 100 UNITS/ML SUBCUT SCH ×2 (08:57→13:13)
[2017-12-05] MEDS: CARVEDILOL 6.25 MG TABLET PO SCH (08:58)
[2017-12-05] MEDS: NIFEDIPINE XL 60MG TAB PO SCH (08:58)
[2017-12-05] MEDS: FAMOTIDINE 20MG TABLET PO SCH (08:58)
[2017-12-05] MEDS: ENOXAPARIN 40MG/0.4ML SYR SUBCUT SCH (08:59)
[2017-12-05] MEDS: LOSARTAN POTASSIUM 50 MG TABLET PO SCH (09:00)
[2017-12-05 12:03] VITALS: BP 150/52
[2017-12-05] MEDS ORDERED: POTASSIUM CHLORIDE 20MEQ TABLET SR PO NR (13:30)
== END 2017-12-05 14:59 | disposition home or self-care (01) | DRG 291 ==
LOC: ER 16:53 → 3WST 20:08 → EDBEDREQSVC 20:10 → EDBEDREQ 20:12 → ENRESERV 20:13
PROVIDERS: ADMIT Internal Medicine; ATTEND Internal Medicine
PROC: 5A09357 Assistance with Respiratory Ventilation, Less than 24 Consecutive Hours, Continuous Positive Airway Pressure (ICD-10-PCS; principal; 2017-11-29)
PROC: 5A09357 Assistance with Respiratory Ventilation, Less than 24 Consecutive Hours, Continuous Positive Airway Pressure (ICD-10-PCS; 2017-11-30)
PROC: 5A09357 Assistance with Respiratory Ventilation, Less than 24 Consecutive Hours, Continuous Positive Airway Pressure (ICD-10-PCS; 2017-12-01)
PROC: 5A09357 Assistance with Respiratory Ventilation, Less than 24 Consecutive Hours, Continuous Positive Airway Pressure (ICD-10-PCS; 2017-12-02)
PROC: 5A09357 Assistance with Respiratory Ventilation, Less than 24 Consecutive Hours, Continuous Positive Airway Pressure (ICD-10-PCS; 2017-12-03)
PROC: 5A09357 Assistance with Respiratory Ventilation, Less than 24 Consecutive Hours, Continuous Positive Airway Pressure (ICD-10-PCS; 2017-12-04)
PROC: 5A09357 Assistance with Respiratory Ventilation, Less than 24 Consecutive Hours, Continuous Positive Airway Pressure (ICD-10-PCS; 2017-12-05)
DX: I13.0 Hypertensive heart and chronic kidney disease with heart failure and stage 1 through stage 4 chronic kidney disease, or unspecified chronic kidney disease (principal); I50.33 Acute on chronic diastolic (congestive) heart failure; J96.01 Acute respiratory failure with hypoxia; E43 Unspecified severe protein-calorie malnutrition; J96.21 Acute and chronic respiratory failure with hypoxia; N17.9 Acute kidney failure, unspecified; J44.1 Chronic obstructive pulmonary disease with (acute) exacerbation; N18.3 Chronic kidney disease, stage 3 (moderate); K74.60 Unspecified cirrhosis of liver; D64.9 Anemia, unspecified; E03.9 Hypothyroidism, unspecified; E11.22 Type 2 diabetes mellitus with diabetic chronic kidney disease; E66.9 Obesity, unspecified; E78.5 Hyperlipidemia, unspecified; I25.10 Atherosclerotic heart disease of native coronary artery without angina pectoris; I49.5 Sick sinus syndrome; I25.2 Old myocardial infarction; Z86.73 Personal history of transient ischemic attack (TIA), and cerebral infarction without residual deficits; Z87.891 Personal history of nicotine dependence; Z90.710 Acquired absence of both cervix and uterus; Z68.39 Body mass index [BMI] 39.0-39.9, adult; Z85.3 Personal history of malignant neoplasm of breast; Z90.13 Acquired absence of bilateral breasts and nipples; Z95.0 Presence of cardiac pacemaker; Z95.1 Presence of aortocoronary bypass graft; Z95.2 Presence of prosthetic heart valve; Z79.4 Long term (current) use of insulin; Z79.899 Other long term (current) drug therapy; Z88.0 Allergy status to penicillin; Z88.5 Allergy status to narcotic agent; Z82.49 Family history of ischemic heart disease and other diseases of the circulatory system; Z83.3 Family history of diabetes mellitus
CPT/HCPCS: 36415; 36600; 71045; 71250; 76604; 76770; 80048; 80053; 80061; 82375; 82550; 82553; 82805; 82962; 83735; 83880; 84100; 84439; 84443; 84484; 85025; 85027; 85610; 86850; 86900; 86920; 93005; 93970; 94618; 94660; 96374; 97116; 97162; 99291; J1650; J1815; J1940; J2920; J3490; J7040; J7620; P9016

== ENCOUNTER 2019-09-12 14:53 | Inpatient (IN) | payer MEDICARE ==
[~2019-09-12] VITALS: Ht 160 cm; Wt 102.5 kg
[~2019-09-12 14:53] MED LIST changes: -LIDOCAINE HCL/PF 1% 2ML VIAL ONE
[2019-09-12] MEDS ORDERED: BUMETANIDE 1MG/4ML VIAL IV ONE (15:15)
[2019-09-12 16:30] LABS: BASOPHILS % 0.4 % (0.0-2.0); EOSINOPHILS % 3.7 % (0.0-5.0); LYMPHOCYTES % 7.7 % (20.0-50.0); MEAN CORPUSCULAR HEMOGLOBIN 32.7 pg (28.0-32.0); MEAN CORPUSCULAR VOLUME 97.7 fL (81.0-99.0); MEAN PLATELET VOLUME 8.5 fl (7.4-10.4); MONOCYTES % 7.2 % (2.0-8.0); PLATELET 168 x1000/uL (130-400); RED BLOOD CELL COUNT 2.77 mill/uL (4.2-5.4); RED CELL DISTRIBUTION WIDTH 15.4 % (11.6-14.6)
[2019-09-12] MEDS ORDERED: LEVOFLOXACIN 500MG PREMIX 100 ML IV ONE (16:30)
[2019-09-12 16:40] LABS: CHLORIDE 106 mEq/L (98-107)
[2019-09-12] MEDS ORDERED: IPRATROPIUM BROMIDE (0.02%) 0.5MG/2.5ML NEB HHN STA (16:46)
[2019-09-12] MEDS ORDERED: ALBUTEROL (0.083%) 2.5MG/3ML NEB HHN STA (16:46)
[2019-09-12 16:47] LABS: PHOSPHORUS 3.9 mg/dL (2.5-4.9)
[2019-09-12 23:42] VITALS: BP 135/52
[2019-09-13] VITALS (11 sets, daily range): BP systolic 95–150; BP diastolic 38–64
[2019-09-13] MEDS ORDERED: DEXTROSE 50% WATER 50ML SYRINGE IV PRN ×2
[2019-09-13] MEDS ORDERED: ACETAMINOPHEN 650MG/20.3ML UDC PO PRN (00:15)
[2019-09-13] MEDS ORDERED: HYDROCODONE/ACETAMINOPHEN 5/325MG TABLET PO PRN (00:15)
[2019-09-13] MEDS ORDERED: CLONIDINE 0.1MG TABLET PO PRN (00:15)
[2019-09-13] MEDS: BLOOD SUGAR DIAGNOSTIC STRIP TEST SCH ×4 (06:31→21:10)
[2019-09-13] MEDS: INSULIN LISPRO 100 UNITS/ML SUBCUT SCH ×4 (06:31→21:30)
[2019-09-13 06:57] LABS: BASOPHILS % 0.6 % (0.0-2.0); EOSINOPHILS % 4.3 % (0.0-5.0); HEMATOCRIT. 27.3 % (36.0-48.0); HEMOGLOBIN. 9.1 g/dL (12.0-16.0); LYMPHOCYTES % 10.4 % (20.0-50.0); MEAN CORPUSCULAR HEMOGLOBIN 32.4 pg (28.0-32.0); MEAN CORPUSCULAR VOLUME 97.4 fL (81.0-99.0); MEAN PLATELET VOLUME 8.9 fl (7.4-10.4); MONOCYTES % 9.3 % (2.0-8.0); NEUTROPHILS % 75.4 % (40.0-76.0); PLATELET 157 x1000/uL (130-400); RED BLOOD CELL COUNT 2.81 mill/uL (4.2-5.4); RED CELL DISTRIBUTION WIDTH 15.3 % (11.6-14.6)
[2019-09-13 08:10] LABS: T4 FREE 0.93 ng/dL (0.76-1.46)
[2019-09-13 08:11] LABS: CREATINE KINASE MB FRACTION 1.6 ng/mL (0.5-3.6)
[2019-09-13] MEDS ORDERED: ASPI-1497 PO (08:39)
[2019-09-13] MEDS ORDERED: PANT40TA4 PO (08:39)
[2019-09-13] MEDS ORDERED: LEVO50TA8 PO (08:39)
[2019-09-13] MEDS ORDERED: ATOR40TA70 PO (08:39)
[2019-09-13] MEDS ORDERED: CARV6.2548 PO (08:39)
[2019-09-13] MEDS ORDERED: INSU100I19 SQ ×2 (08:39→08:41)
[2019-09-13] MEDS ORDERED: ENOXAPARIN 30MG/0.3ML SYR SUBCUT SCH (09:00)
[2019-09-13] MEDS: FUROSEMIDE 40MG/4ML VIAL IVP SCH ×2 (10:17→21:25)
[2019-09-13] MEDS: ASPIRIN 81MG TABLET PO SCH (10:18)
[2019-09-13] MEDS: LOSARTAN POTASSIUM 50 MG TABLET PO SCH (10:19)
[2019-09-13] MEDS: METOPROLOL TARTRATE 50MG TABLET PO SCH ×2 (10:20→21:00)
[2019-09-13] MEDS: IPRATROPIUM/ALBUTEROL 0.5-3(2.5)MG/3ML NEB HHN SCH ×2 (14:18→20:28)
[2019-09-13] MEDS ORDERED: IPRATROPIUM/ALBUTEROL 0.5-3(2.5)MG/3ML NEB ONE (14:21)
[2019-09-13 17:08] LABS: CREATINE KINASE MB FRACTION 1.7 ng/mL (0.5-3.6)
[2019-09-13] MEDS: METHYLPREDNISOLONE SOD SUCC 40 MG/ML VIAL IV SCH (17:26)
[2019-09-13 17:29] LABS: BG CARBOXYHEMOGLOBIN 0.3 % (0.5-1.5); BG DEOXYHEMOGLOBIN 9.8 % (0.0-5.0); BG FRACTION INSPIRED OXYGEN 28; BG HCO3 ACT 27.8 mmol/L (22.0-26.0); BG METHEMOGLOBIN 0.1 % (0.0-1.5); BG OXYGEN SATURATION 90.2 % (92.0-98.5); BG OXYHEMOGLOBIN 89.8 % (94.0-97.0); BG PCO2 48.9 mmHg (35.0-45.0); BG PH 7.372 (7.350-7.450); BG PO2 62.4 mmHg (75.0-100.0); BG SAMPLE SITE RIGHT RADIAL; BG TOTAL HEMOGLOBIN 9.8 g/dL (12.0-18.0); BG VENT MODE NASAL CANNULA
[2019-09-13] MEDS: LEVOFLOXACIN 500MG PREMIX 100 ML IV SCH (20:50)
[2019-09-13] MEDS: FAMOTIDINE 20MG TABLET PO SCH (21:25)
[2019-09-13] MEDS: ATORVASTATIN CALCIUM 20MG TABLET PO SCH (21:25)
[2019-09-13 22:14] LABS: INR 1.1; PROTHROMBIN TIME 11.4 sec (9.6-11.0)
[2019-09-13 22:21] LABS: CREATINE KINASE MB FRACTION 1.5 ng/mL (0.5-3.6)
[2019-09-14] VITALS (12 sets, daily range): BP systolic 96–160; BP diastolic 22–69
[2019-09-14] MEDS: IPRATROPIUM/ALBUTEROL 0.5-3(2.5)MG/3ML NEB HHN SCH ×4 (01:10→20:27)
[2019-09-14] MEDS: METHYLPREDNISOLONE SOD SUCC 40 MG/ML VIAL IV SCH (05:14)
[2019-09-14 06:48] LABS: HEMATOCRIT. 28.8 % (36.0-48.0); HEMOGLOBIN. 9.5 g/dL (12.0-16.0); MEAN CORPUSCULAR HEMOGLOBIN 32.6 pg (28.0-32.0); MEAN CORPUSCULAR VOLUME 98.5 fL (81.0-99.0); MEAN PLATELET VOLUME 8.9 fl (7.4-10.4); PLATELET 171 x1000/uL (130-400); RED BLOOD CELL COUNT 2.92 mill/uL (4.2-5.4); RED CELL DISTRIBUTION WIDTH 15.5 % (11.6-14.6)
[2019-09-14 06:49] LABS: PROTHROMBIN TIME 11.2 sec (9.6-11.0)
[2019-09-14 07:07] LABS: PHOSPHORUS 5.3 mg/dL (2.5-4.9)
[2019-09-14] MEDS: BLOOD SUGAR DIAGNOSTIC STRIP TEST SCH ×4 (07:30→20:43)
[2019-09-14] MEDS: FUROSEMIDE 40MG/4ML VIAL IVP SCH ×2 (09:15→20:38)
[2019-09-14] MEDS: INSULIN LISPRO 100 UNITS/ML SUBCUT SCH ×4 (09:15→20:54)
[2019-09-14] MEDS: ASPIRIN 81MG TABLET PO SCH (09:21)
[2019-09-14] MEDS: ENOXAPARIN 40MG/0.4ML SYR SUBCUT SCH (09:21)
[2019-09-14] MEDS: CLOPIDOGREL 75MG TABLET PO SCH (09:22)
[2019-09-14] MEDS: LOSARTAN POTASSIUM 50 MG TABLET PO SCH (09:22)
[2019-09-14] MEDS: METOPROLOL TARTRATE 50MG TABLET PO SCH ×2 (09:25→20:39)
[2019-09-14 11:53] LABS: PLATELET ESTIMATE NORMAL
[2019-09-14] MEDS ORDERED: METOLAZONE 2.5MG TABLET PO SCH (14:00)
[2019-09-14] MEDS ORDERED: CALCIUM CARBONATE 500MG TABLET CHEW PO SCH (17:30)
[2019-09-14] MEDS: LEVOFLOXACIN 500MG PREMIX 100 ML IV SCH (20:22)
[2019-09-14] MEDS: FAMOTIDINE 20MG TABLET PO SCH (20:39)
[2019-09-14] MEDS: ATORVASTATIN CALCIUM 20MG TABLET PO SCH (20:39)
[2019-09-15] VITALS (9 sets, daily range): BP systolic 89–132; BP diastolic 25–83
[2019-09-15] MEDS: IPRATROPIUM/ALBUTEROL 0.5-3(2.5)MG/3ML NEB HHN SCH ×3 (01:44→14:26)
[2019-09-15] MEDS: BLOOD SUGAR DIAGNOSTIC STRIP TEST SCH ×2 (06:31→11:50)
[2019-09-15] MEDS: INSULIN LISPRO 100 UNITS/ML SUBCUT SCH ×2 (07:20→14:04)
[2019-09-15] MEDS: LOSARTAN POTASSIUM 50 MG TABLET PO SCH (09:00)
[2019-09-15] MEDS ORDERED: METHYLPREDNISOLONE SOD SUCC 40 MG/ML VIAL IV SCH (09:00)
[2019-09-15] MEDS: FUROSEMIDE 40MG/4ML VIAL IVP SCH (09:49)
[2019-09-15] MEDS: ENOXAPARIN 40MG/0.4ML SYR SUBCUT SCH (09:49)
[2019-09-15] MEDS: ASPIRIN 81MG TABLET PO SCH (09:49)
[2019-09-15] MEDS: CLOPIDOGREL 75MG TABLET PO SCH (09:50)
[2019-09-15] MEDS ORDERED: LEVOFLOXACIN 250MG TABLET PO SCH (11:00)
[2019-09-15 11:48] LABS: HEMATOCRIT. 27.1 % (36.0-48.0); HEMOGLOBIN. 8.9 g/dL (12.0-16.0); MEAN CORPUSCULAR HEMOGLOBIN 31.9 pg (28.0-32.0); MEAN PLATELET VOLUME 8.6 fl (7.4-10.4); PLATELET 165 x1000/uL (130-400); RED BLOOD CELL COUNT 2.79 mill/uL (4.2-5.4); RED CELL DISTRIBUTION WIDTH 15.5 % (11.6-14.6)
[2019-09-15 12:06] LABS: PHOSPHORUS 4.2 mg/dL (2.5-4.9)
[2019-09-15 13:14] LABS: PLATELET ESTIMATE NORMAL
[2019-09-15] MEDS: METOPROLOL TARTRATE 50MG TABLET PO SCH (14:04)
[2019-09-15] MEDS ORDERED: FURO-151 MT (14:10)
[2019-09-15] MEDS ORDERED: FAMO-135 PO (14:10)
[2019-09-15] MEDS ORDERED: FURO80TA87 MT (14:10)
[2019-09-15] MEDS ORDERED: CLOP75TA4 MT (14:10)
[2019-09-15] MEDS ORDERED: P20 PO (14:10)
== END 2019-09-15 16:00 | disposition home or self-care (01) | DRG 291 ==
LOC: ER 14:53 → EDBEDREQ 16:41 → EDBEDREQTM 18:25 → ENRESERV 21:54 → 3WST 23:52
PROVIDERS: ADMIT Internal Medicine; ATTEND Internal Medicine
PROC: 5A09357 Assistance with Respiratory Ventilation, Less than 24 Consecutive Hours, Continuous Positive Airway Pressure (ICD-10-PCS; 2019-09-13)
PROC: 4B02XSZ Measurement of Cardiac Pacemaker, External Approach (ICD-10-PCS; principal; 2019-09-15)
DX: I13.0 Hypertensive heart and chronic kidney disease with heart failure and stage 1 through stage 4 chronic kidney disease, or unspecified chronic kidney disease (principal); J96.01 Acute respiratory failure with hypoxia; J18.9 Pneumonia, unspecified organism; I50.43 Acute on chronic combined systolic (congestive) and diastolic (congestive) heart failure; N17.9 Acute kidney failure, unspecified; J44.1 Chronic obstructive pulmonary disease with (acute) exacerbation; Z68.41 Body mass index [BMI] 40.0-44.9, adult; J44.0 Chronic obstructive pulmonary disease with (acute) lower respiratory infection; N18.4 Chronic kidney disease, stage 4 (severe); E03.9 Hypothyroidism, unspecified; E66.01 Morbid (severe) obesity due to excess calories; E11.22 Type 2 diabetes mellitus with diabetic chronic kidney disease; G47.30 Sleep apnea, unspecified; I25.10 Atherosclerotic heart disease of native coronary artery without angina pectoris; I44.7 Left bundle-branch block, unspecified; I49.5 Sick sinus syndrome; D64.9 Anemia, unspecified; E11.65 Type 2 diabetes mellitus with hyperglycemia; E78.5 Hyperlipidemia, unspecified; K74.60 Unspecified cirrhosis of liver; Z85.3 Personal history of malignant neoplasm of breast; Z95.1 Presence of aortocoronary bypass graft; Z95.2 Presence of prosthetic heart valve; Z99.81 Dependence on supplemental oxygen; Z88.5 Allergy status to narcotic agent; Z88.0 Allergy status to penicillin; Z79.84 Long term (current) use of oral hypoglycemic drugs; Z79.899 Other long term (current) drug therapy; Z90.10 Acquired absence of unspecified breast and nipple; Z79.82 Long term (current) use of aspirin; Z79.890 Hormone replacement therapy; Z79.4 Long term (current) use of insulin; Z86.73 Personal history of transient ischemic attack (TIA), and cerebral infarction without residual deficits; Z82.49 Family history of ischemic heart disease and other diseases of the circulatory system; I25.2 Old myocardial infarction
CPT/HCPCS: 36415; 36600; 71045; 76770; 80048; 80053; 80061; 82375; 82550; 82553; 82805; 82962; 83605; 83735; 83880; 84100; 84439; 84443; 84484; 85025; 93005; 93306; 93970; 94640; 94660; 96365; 97162; 99285; J1650; J1815; J1940; J1956; J2920; J3490

== ENCOUNTER 2019-11-08 21:51 | Inpatient (IN) | payer MEDICARE ==
[~2019-11-08] VITALS: Ht 165.1 cm; Wt 99.4 kg
[~2019-11-08 21:51] MED LIST changes: +ASPI-1497 MT; +ASPI-1497 PO; -ATOR20TA65 PO; +ATOR40TA70 PO; +CARV6.2548 PO; +CLOP75TA4 MT; +COR6 MT; +FAMO-135 PO; -FURO40TA5 PO; +FURO80TA87 MT; +GABA-531 PO; +INSU100I19 SQ; +IPRA3AMP9 NEB; +LEVO50TA8 PO; +LIP40 MT; +P20 PO; +PANT40TA4 PO
[2019-11-08] MEDS ORDERED: IPRATROPIUM BROMIDE (0.02%) 0.5MG/2.5ML NEB HHN STA (21:58)
[2019-11-08] MEDS ORDERED: ONDANSETRON HCL 4MG/2ML INJ IV STA (21:58)
[2019-11-08] MEDS ORDERED: ALBUTEROL (0.083%) 2.5MG/3ML NEB HHN STA (21:58)
[2019-11-08] MEDS ORDERED: ASPIRIN 81MG TABLET PO ONE (22:00)
[2019-11-08] MEDS ORDERED: FUROSEMIDE 20MG/2ML VIAL IVP ONE (22:00)
[2019-11-08 22:39] LABS: HEMATOCRIT. 26.1 % (36.0-48.0); HEMOGLOBIN. 8.5 g/dL (12.0-16.0); MEAN PLATELET VOLUME 9.1 fl (7.4-10.4); PLATELET 157 x1000/uL (130-400); RED BLOOD CELL COUNT 2.84 mill/uL (4.2-5.4); RED CELL DISTRIBUTION WIDTH 17.8 % (11.6-14.6)
[2019-11-08 22:46] LABS: CHLORIDE 93 mEq/L (98-107)
[2019-11-08 22:49] LABS: BG BASE EXCESS 5.6 mmol/L (-2.0-2.0); BG BILEVEL POS AIRWAY PRESSURE 15/5; BG DEOXYHEMOGLOBIN 12.6 % (0.0-5.0); BG FRACTION INSPIRED OXYGEN 40; BG HCO3 ACT 31.8 mmol/L (22.0-26.0); BG METHEMOGLOBIN 0.3 % (0.0-1.5); BG OXYGEN SATURATION 87.4 % (92.0-98.5); BG OXYHEMOGLOBIN 87.1 % (94.0-97.0); BG PCO2 55.8 mmHg (35.0-45.0); BG PH 7.373 (7.350-7.450); BG PO2 59.3 mmHg (75.0-100.0); BG SAMPLE SITE LEFT BRACHIAL; BG TIDAL VOLUME(mL) 382 mL; BG TOTAL HEMOGLOBIN 8.9 g/dL (12.0-18.0); BG VENT MODE MASK - BIPAP; BG VENT RATE 16 set
[2019-11-08 23:00] LABS: PLATELET ESTIMATE NORMAL
[2019-11-08] MEDS ORDERED: FUROSEMIDE 20MG/2ML VIAL IVP NR (23:15)
[2019-11-09] MEDS ORDERED: MIDODRINE HCL 2.5MG TABLET PO SCH (09:15)
[2019-11-09] MEDS: FUROSEMIDE 100MG/10ML VIAL IVP SCH ×3 (09:15→17:23)
[2019-11-09] MEDS ORDERED: CEFTRIAXONE 1 G PREMIX 50 ML IV SCH (09:15)
[2019-11-09] MEDS: DOXYCYCLINE HYCLATE 100MG CAPSULE PO SCH ×2 (09:15→22:20)
[2019-11-09 10:24] LABS: TOTAL IRON BINDING CAPACITY 343 ug/dL (250-450)
[2019-11-09 11:55] LABS: FERRITIN 48 ng/mL (10-291)
[2019-11-09 11:56] LABS: HEPATITIS B SURFACE AB < 3.1 mIU/mL
[2019-11-09 12:06] LABS: HEPATITIS B SURFACE ANTIGEN NEGATIVE
[2019-11-09] MEDS ORDERED: GUAIFENESIN 200MG/10ML SUGAR FREE UDC PO PRN (12:45)
[2019-11-09] MEDS ORDERED: LORAZEPAM 2MG/ML CPJ IV PRN (12:45)
[2019-11-09] MEDS ORDERED: ACETAMINOPHEN 650MG SUPP PR PRN (12:45)
[2019-11-09] MEDS ORDERED: MORPHINE SULFATE 2 MG/ML CPJ (NOT FOR IM USE) IV PRN (12:45)
[2019-11-09] MEDS ORDERED: ACETAMINOPHEN 325MG TABLET PO PRN (12:45)
[2019-11-09] MEDS ORDERED: HYDROCODONE/ACETAMINOPHEN 5/325MG TABLET PO PRN (12:45)
[2019-11-09] MEDS ORDERED: DIPHENHYDRAMINE 50MG/ML VIAL IV PRN (12:45)
[2019-11-09] MEDS ORDERED: CLONIDINE 0.1MG TABLET PO PRN (12:45)
[2019-11-09] MEDS ORDERED: IPRATROPIUM/ALBUTEROL 0.5-3(2.5)MG/3ML NEB NEB PRN (12:45)
[2019-11-09] MEDS ORDERED: ONDANSETRON HCL 4MG/2ML INJ IV PRN (12:45)
[2019-11-09] MEDS ORDERED: MAGNESIUM/ALUMINUM HYDROXIDE/SIMETHICONE 30ML UDC PO PRN (13:00)
[2019-11-09] MEDS ORDERED: LIDOCAINE HCL 1% 20ML VIAL (Pyxis) INJ ONE (13:14)
[2019-11-09 13:34] LABS: INR 1.1; PROTHROMBIN TIME 11.2 sec (9.6-11.0)
[2019-11-09] MEDS: METHYLPREDNISOLONE SOD SUCC 40 MG/ML VIAL IV SCH (13:51)
[2019-11-09] MEDS: IPRATROPIUM/ALBUTEROL 0.5-3(2.5)MG/3ML NEB NEB SCH ×3 (15:18→21:47)
[2019-11-09 15:23] LABS: BG BASE EXCESS 6.3 mmol/L (-2.0-2.0); BG BILEVEL POS AIRWAY PRESSURE 15/5; BG CARBOXYHEMOGLOBIN 0.1 % (0.5-1.5); BG DEOXYHEMOGLOBIN 3.7 % (0.0-5.0); BG FRACTION INSPIRED OXYGEN 40; BG HCO3 ACT 33.4 mmol/L (22.0-26.0); BG METHEMOGLOBIN 0.3 % (0.0-1.5); BG OXYGEN SATURATION 96.3 % (92.0-98.5); BG OXYHEMOGLOBIN 95.9 % (94.0-97.0); BG PCO2 65.6 mmHg (35.0-45.0); BG PH 7.325 (7.350-7.450); BG PO2 94.3 mmHg (75.0-100.0); BG SAMPLE SITE RIGHT BRACHIAL; BG TOTAL HEMOGLOBIN 8.5 g/dL (12.0-18.0); BG VENT MODE MASK - BIPAP
[2019-11-09] MEDS: MIDODRINE HCL 2.5MG TABLET PO SCH (17:53)
[2019-11-09] MEDS ORDERED: EPOETIN ALFA 10000UNITS/ML VIAL SUBCUT NR (21:00)
[2019-11-09 22:00] VITALS: BP 97/76
[2019-11-09] MEDS: ATORVASTATIN CALCIUM 40MG TABLET PO SCH (22:20)
[2019-11-10] VITALS (13 sets, daily range): BP systolic 101–175; BP diastolic 41–114
[2019-11-10] MEDS: IPRATROPIUM/ALBUTEROL 0.5-3(2.5)MG/3ML NEB NEB SCH ×4 (00:37→20:12)
[2019-11-10] MEDS: METHYLPREDNISOLONE SOD SUCC 40 MG/ML VIAL IV SCH ×2 (02:25→13:38)
[2019-11-10 07:13] LABS: MEAN CORPUSCULAR HEMOGLOBIN 28.8 pg (28.0-32.0); MEAN CORPUSCULAR VOLUME 89.9 fL (81.0-99.0); MEAN PLATELET VOLUME 8.5 fl (7.4-10.4); PLATELET 179 x1000/uL (130-400); RED BLOOD CELL COUNT 3.61 mill/uL (4.2-5.4); RED CELL DISTRIBUTION WIDTH 16.4 % (11.6-14.6)
[2019-11-10 07:22] LABS: HEMATOCRIT. 32.4 % (36.0-48.0); HEMOGLOBIN. 10.4 g/dL (12.0-16.0)
[2019-11-10] MEDS: FUROSEMIDE 100MG/10ML VIAL IVP SCH ×2 (08:25→17:07)
[2019-11-10] MEDS: ASPIRIN 81MG EC TABLET PO SCH (08:25)
[2019-11-10] MEDS: DOXYCYCLINE HYCLATE 100MG CAPSULE PO SCH ×2 (08:25→20:15)
[2019-11-10] MEDS: MIDODRINE HCL 2.5MG TABLET PO SCH ×2 (08:25→15:19)
[2019-11-10 09:26] LABS: CHLORIDE 97 mEq/L (98-107)
[2019-11-10] MEDS ORDERED: CEFTRIAXONE 1 G PREMIX 50 ML IV SCH (10:00)
[2019-11-10] MEDS ORDERED: SODIUM POLYSTYRENE SULFONATE 15 G/60 ML BOT PO NR (11:00)
[2019-11-10 11:12] LABS: PLATELET ESTIMATE NORMAL
[2019-11-10 11:33] LABS: BG BASE EXCESS 3.2 mmol/L (-2.0-2.0); BG CARBOXYHEMOGLOBIN 0.2 % (0.5-1.5); BG DEOXYHEMOGLOBIN 5.8 % (0.0-5.0); BG FRACTION INSPIRED OXYGEN 32; BG HCO3 ACT 29.5 mmol/L (22.0-26.0); BG METHEMOGLOBIN 0.2 % (0.0-1.5); BG OXYGEN SATURATION 94.2 % (92.0-98.5); BG OXYHEMOGLOBIN 93.8 % (94.0-97.0); BG PCO2 55.1 mmHg (35.0-45.0); BG PH 7.347 (7.350-7.450); BG PO2 76.9 mmHg (75.0-100.0); BG SAMPLE SITE RIGHT BRACHIAL; BG TOTAL HEMOGLOBIN 8.7 g/dL (12.0-18.0); BG VENT MODE NASAL CANNULA
[2019-11-10] MEDS: ATORVASTATIN CALCIUM 40MG TABLET PO SCH (20:14)
[2019-11-11] VITALS (7 sets, daily range): BP systolic 91–124; BP diastolic 43–76
[2019-11-11] MEDS: IPRATROPIUM/ALBUTEROL 0.5-3(2.5)MG/3ML NEB NEB SCH ×2 (00:27→08:42)
[2019-11-11] MEDS: METHYLPREDNISOLONE SOD SUCC 40 MG/ML VIAL IV SCH ×2 (00:51→12:31)
[2019-11-11 06:31] LABS: HEMATOCRIT. 24.6 % (36.0-48.0); HEMOGLOBIN. 8.1 g/dL (12.0-16.0); MEAN CORPUSCULAR HEMOGLOBIN 29.9 pg (28.0-32.0); MEAN CORPUSCULAR VOLUME 91.3 fL (81.0-99.0); MEAN PLATELET VOLUME 9.4 fl (7.4-10.4); PLATELET 166 x1000/uL (130-400); RED BLOOD CELL COUNT 2.69 mill/uL (4.2-5.4); RED CELL DISTRIBUTION WIDTH 17.7 % (11.6-14.6)
[2019-11-11 06:46] LABS: PHOSPHORUS 6.2 mg/dL (2.5-4.9)
[2019-11-11] MEDS: MIDODRINE HCL 2.5MG TABLET PO SCH (07:53)
[2019-11-11 08:44] LABS: BG BASE EXCESS 2.8 mmol/L (-2.0-2.0); BG CARBOXYHEMOGLOBIN 0.6 % (0.5-1.5); BG DEOXYHEMOGLOBIN 8.1 % (0.0-5.0); BG FRACTION INSPIRED OXYGEN 32; BG HCO3 ACT 27.9 mmol/L (22.0-26.0); BG METHEMOGLOBIN 0.5 % (0.0-1.5); BG OXYGEN SATURATION 91.8 % (92.0-98.5); BG OXYHEMOGLOBIN 90.8 % (94.0-97.0); BG PCO2 45.5 mmHg (35.0-45.0); BG PH 7.405 (7.350-7.450); BG PO2 67.2 mmHg (75.0-100.0); BG SAMPLE SITE LEFT RADIAL; BG TOTAL HEMOGLOBIN 8.6 g/dL (12.0-18.0); BG VENT MODE NASAL CANNULA
[2019-11-11] MEDS ORDERED: IRON SUCROSE COMPLEX 100 MG/5 ML ML IV SCH (11:00)
[2019-11-11] MEDS: ASPIRIN 81MG EC TABLET PO SCH (11:14)
[2019-11-11] MEDS: DOXYCYCLINE HYCLATE 100MG CAPSULE PO SCH (11:14)
[2019-11-11] MEDS: FUROSEMIDE 100MG/10ML VIAL IVP SCH (11:14)
[2019-11-11] MEDS ORDERED: MIDODRINE HCL 5MG TABLET PO SCH (12:00)
[2019-11-11 13:37] LABS: PLATELET ESTIMATE NORMAL
== END 2019-11-11 14:00 | disposition expired ==
LOC: ER 21:51 → 3WST 11-09 00:23 → EDBEDREQ 11-09 00:26 → EDBEDREQTM 11-09 00:26 → EDBEDREQDT 11-09 00:26 → EDBEDREQSVC 11-09 00:26 → ENRESERV 11-09 19:52 → 3WST 11-10 08:57
PROVIDERS: ADMIT Internal Medicine; ATTEND Internal Medicine
PROC: 5A09457 Assistance with Respiratory Ventilation, 24-96 Consecutive Hours, Continuous Positive Airway Pressure (ICD-10-PCS; 2019-11-08)
PROC: 02HV33Z Insertion of Infusion Device into Superior Vena Cava, Percutaneous Approach (ICD-10-PCS; principal; 2019-11-09)
PROC: 5A1D70Z Performance of Urinary Filtration, Intermittent, Less than 6 Hours Per Day (ICD-10-PCS; 2019-11-09)
PROC: 5A1D70Z Performance of Urinary Filtration, Intermittent, Less than 6 Hours Per Day (ICD-10-PCS; 2019-11-11)
PROC: 5A09357 Assistance with Respiratory Ventilation, Less than 24 Consecutive Hours, Continuous Positive Airway Pressure (ICD-10-PCS; 2019-11-11)
DX: I13.0 Hypertensive heart and chronic kidney disease with heart failure and stage 1 through stage 4 chronic kidney disease, or unspecified chronic kidney disease (principal); J96.02 Acute respiratory failure with hypercapnia; I21.4 Non-ST elevation (NSTEMI) myocardial infarction; N17.0 Acute kidney failure with tubular necrosis; I50.33 Acute on chronic diastolic (congestive) heart failure; J96.01 Acute respiratory failure with hypoxia; J44.1 Chronic obstructive pulmonary disease with (acute) exacerbation; E87.1 Hypo-osmolality and hyponatremia; E44.0 Moderate protein-calorie malnutrition; N18.4 Chronic kidney disease, stage 4 (severe); L03.115 Cellulitis of right lower limb; I31.3 Pericardial effusion (noninflammatory); G93.40 Encephalopathy, unspecified; E87.2 Acidosis; I25.10 Atherosclerotic heart disease of native coronary artery without angina pectoris; K74.60 Unspecified cirrhosis of liver; I35.0 Nonrheumatic aortic (valve) stenosis; G47.33 Obstructive sleep apnea (adult) (pediatric); E78.5 Hyperlipidemia, unspecified; I95.9 Hypotension, unspecified; E11.22 Type 2 diabetes mellitus with diabetic chronic kidney disease; K21.9 Gastro-esophageal reflux disease without esophagitis; I34.0 Nonrheumatic mitral (valve) insufficiency; I49.5 Sick sinus syndrome; E03.9 Hypothyroidism, unspecified; I44.7 Left bundle-branch block, unspecified; Z88.5 Allergy status to narcotic agent; Z88.0 Allergy status to penicillin; Z79.82 Long term (current) use of aspirin; Z79.4 Long term (current) use of insulin; Z79.890 Hormone replacement therapy; Z79.899 Other long term (current) drug therapy; Z99.81 Dependence on supplemental oxygen; Z86.73 Personal history of transient ischemic attack (TIA), and cerebral infarction without residual deficits; Z83.3 Family history of diabetes mellitus; Z82.49 Family history of ischemic heart disease and other diseases of the circulatory system; Z68.36 Body mass index [BMI] 36.0-36.9, adult; Z66 Do not resuscitate; Z85.3 Personal history of malignant neoplasm of breast; Z99.2 Dependence on renal dialysis; Z95.5 Presence of coronary angioplasty implant and graft; Z98.84 Bariatric surgery status; Z95.0 Presence of cardiac pacemaker; I46.9 Cardiac arrest, cause unspecified; E87.5 Hyperkalemia; D50.9 Iron deficiency anemia, unspecified
CPT/HCPCS: 36415; 36600; 71045; 73620; 74018; 76700; 76937; 80048; 80053; 82140; 82375; 82728; 82805; 82962; 83540; 83550; 83735; 83880; 84100; 84484; 85025; 86705; 86706; 86803; 86850; 86900; 87340; 93005; 93970; 94640; 94660; 96374; 96375; 96376; 97162; 99291; C1752; J0696; J0885; J1940; J2270; J2405; J2920; J3490